=== PATIENT | male | born 1970 | race Caucasian/White ===

== ENCOUNTER 2018-01-28 19:27 | Emergency (ER) | payer OTHER ==
[~2018-01-28] VITALS: Ht 162.6 cm; Wt 77.1 kg
[2018-01-28 19:44] VITALS: Ht 162.6 cm; Wt 77.1 kg
[2018-01-28 21:18] VITALS: BP 124/73
== END 2018-01-28 21:18 | disposition home or self-care (01) ==
LOC: ED 19:27
DX: R10.9 Unspecified abdominal pain (principal); R50.9 Fever, unspecified; E78.00 Pure hypercholesterolemia, unspecified
CPT/HCPCS: J1885; J3010